=== PATIENT | female | born 1960 | race Caucasian/White ===

== ENCOUNTER 2018-01-06 03:52 | Emergency (ER) | payer BC ==
[2018-01-06] MEDS ORDERED: PROPARACAINE 0.5% OPHTH DROPS 15 ML EACHEYE STA (04:05)
[2018-01-06] MEDS ORDERED: ERYTHROMYCIN OPHTH OINT 1 GM TUBE LEFTEYE STA (04:27)
--- NOTE | 2018-01-06 04:32 | ED Physician Documentation ---
PD HPI OPHTHO - Stated complaint Stated Complaint: L EYE PX - Chief complaint Chief Complaint: Heent - History obtained from History obtained from: Patient - Treatment prior to arrival Treatment prior to arrival: 57-year-old female presents the emergency department with increasing left eye irritation. The patient's symptoms started yesterday when she noticed irritation to her left eye. The patient reports a glazing over I similar to when she had conjunctivitis. The patient's pain increased throughout the day and this morning she reports a sharp pain and generalized irritation. The patient reports blurry vision. No fever. No specific injury. Symptoms are described as moderate. The patient does wear contacts. No relieving factors Review of Systems Constitutional: denies: Fever Eyes: reports: Photophobia, Discharge, Irritation. 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 - Present Medications Home Medications: Ambulatory Orders Medication Instructions Recorded Confirmed Montelukast [Singulair] 1 tab PO DAILY 01/06/18 01/06/18 Ofloxacin 0.3% Ophth Drops 1 - 2 drops OPTH QID #1 btl 01/06/18 [Ocuflox 0.3% Ophth Drops] - Allergies Allergies/Adverse Reactions: Allergies Allergy/AdvReac Type Severity Reaction Status Date / Time Sulfa (Sulfonamide Allergy Hives Verified 01/06/18 04:06 Antibiotics) - Social History Does the pt smoke?: No Smoking Status: Never smoker Does the pt drink ETOH?: Yes Does the pt have substance abuse?: No - Immunizations Immunizations are current?: Yes - POLST Patient has POLST: No PD ED PE NORMAL - General General: Alert and oriented X 3 - HEENT HEENT: Atraumatic - Neuro Neuro: Alert and oriented X 3, Normal speech - Psych Psych: Normal affect PD ED PE EXPANDED - Eyes Eyes: PERRL, Normal accommodation, EOMI, Left eye, No eyelid FB (everted), Injected conj/sclera, Anterior chambers clear, Other (IOP: Right 17, Left 21). No: Eyelid injury, Eyelid swelling, Exudate, Conj/sclera FB, Subconj hemorrhage , Corneal FB, Corneal ulcer, Hyphema, Ant chamber cells/flare Results - Vitals Vitals: Vital Signs - 24 hr 01/06/18 03:55 Temperature 36.8 C Heart Rate 102 H Respiratory 18 Rate Blood Pressure 171/88 H O2 Saturation 97 Oxygen O2 Source Room air PD MEDICAL DECISION MAKING - ED course ED course: The patient's pain resolved after proparacaine drops. The patient had normal intraocular pressures. The patient's vision returned once her pain was under control, The patient was advised to not use her contacts and we placed on a course of antibiotic drops. Advised following up with ophthalmology for further workup and evaluation of her symptoms. - Sepsis Event Vital Signs: Vital Signs - 24 hr 01/06/18 03:55 Temperature 36.8 C Heart Rate 102 H Respiratory 18 Rate Blood Pressure 171/88 H O2 Saturation 97 Oxygen O2 Source Room air Departure - Departure Disposition: 01 Home, Self Care Clinical Impression: Conjunctivitis Qualifiers: Conjunctivitis type: acute Acute conjunctivitis type: unspecified Laterality: unspecified laterality Qualified Code(s): H10.30 - Unspecified acute conjunctivitis, unspecified eye Condition: Good Follow-Up: Los Harris MD [Provider Admit Priv/Credential] - Jez Marina MD [Provider Admit Priv/Credential] - Ambreen Chopra MD [Provider Admit Priv/Credential] - Prescriptions: Ofloxacin 0.3% Ophth Drops [Ocuflox 0.3% Ophth Drops] 1 - 2 drops OPT QID #1 btl Comments: Please follow-up with ophthalmology for further workup and evaluation of your eye pain. Stop wearing your currents contacts. Please return to the emergency department immediately for worsening symptoms or any concerns
[2018-01-06 04:55] VITALS: BP 168/87
== END 2018-01-06 04:55 | disposition home or self-care (01) ==
LOC: ED 03:52
DX: H10.9 Unspecified conjunctivitis (principal)
CPT/HCPCS: 99283; J3490

== ENCOUNTER 2020-04-30 14:36 | Outpatient (CLI) | payer BC | END 2020-04-30 14:37 | disposition critical access hospital (66) | LOC: EMS 14:36 | PROVIDERS: ATTEND Surgery | DX: R07.9 Chest pain, unspecified (principal) | CPT/HCPCS: A0425; A0427 ==

== ENCOUNTER 2020-04-30 15:08 | Emergency (ER) | payer BC ==
[2020-04-30] MEDS ORDERED: MAG HYDROX/AL HYDROX/SIMETH 30 ML UDC PO STA (15:25)
[2020-04-30] MEDS ORDERED: LIDOCAINE VISCOUS 2% 15 ML UDC MM STA (15:25)
--- NOTE | 2020-04-30 15:29 | ED Physician Documentation ---
PD HPI CHEST PAIN - Stated complaint Stated Complaint: CP - Chief complaint Chief Complaint: Cardiac - History obtained from History obtained from: Patient - History of Present Illness Timing - onset: How many weeks ago (1) Timing - onset during: Rest Timing - duration: Weeks (1) Timing - details: Constant Pain level max: 6 Pain level now: 5 Quality: Pressure, Tightness, Other (Cramping) Location: Substernal, Epigastric Radiation: No: Jaw, Neck, Back, Abdominal, Left upper extremity, Right upper extremity Improved by: Nothing Worsened by: Other (nothing) Associated symptoms: No: Shortness of air, Diaphoresis, Nausea, Vomiting, Feeling faint / dizzy, General Weakness, Palpitations, Cough Similar symptoms before: Has not had sx before Recently seen: Not recently seen - Additional information Additional information: 59-year-old female with epigastric abdominal pain and chest pain for the past week. She describes it is constant. Nothing makes it better or worse. Has not had similar symptoms in the past. No cardiac history. 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 - Present Medications Home Medications: Ambulatory Orders Medication Instructions Recorded Confirmed Montelukast [Singulair] 1 tab PO DAILY 01/06/18 04/30/20 - Allergies Allergies/Adverse Reactions: Allergies Allergy/AdvReac Type Severity Reaction Status Date / Time Sulfa (Sulfonamide Allergy Hives Verified 04/30/20 15:13 Antibiotics) - Living Situation Living Arrangement: reports: At home - Social History Does the pt smoke?: No Smoking Status: Never smoker Does the pt drink ETOH?: Yes Does the pt have substance abuse?: No - Immunizations Immunizations are current?: Yes - POLST Patient has POLST: No PD ED PE NORMAL - Vitals Vital signs reviewed: Yes - General General: Alert and oriented X 3, No acute distress, Well developed/nourished - HEENT HEENT: PERRL, Moist mucous membranes - Neck Neck: Supple, no meningeal sign - Cardiac Cardiac: RRR, No murmur, Strong equal pulses - Respiratory Respiratory: No respiratory distress, Clear bilaterally - Abdomen Abdomen: Normal bowel sounds, Soft, Non distended, Other (mild TTP epigastric. no peritoneal signs.) - Derm Derm: Warm and dry, No rash - Extremities Extremities: No edema, No calf tenderness / cord - Neuro Neuro: Alert and oriented X 3 - Psych Psych: Normal mood, Normal affect Results - Vitals Vitals: Vital Signs - 24 hr 04/30/20 04/30/20 15:13 16:55 Temperature 36.6 C Heart Rate 100 100 Respiratory 16 18 Rate Blood Pressure 189/89 H 138/90 H O2 Saturation 98 100 Oxygen O2 Source Room air - EKG (time done) 1510 Rate: Rate (enter#) (107) Rhythm: Sinus tachycardia [place]: Posterior hemiblock (LPFB) Intervals: Normal CO QRS: Normal Ischemia: Non specific changes - Labs Labs: Laboratory Tests 04/30/20 04/30/20 04/30/20 15:40 15:40 15:40 WBC 10.4 RBC 4.48 Hgb 13.5 Hct 41.0 MCV 91.5 MCH 30.1 MCHC 32.9 RDW 12.0 Plt Count 267 MPV 8.6 Neut # (Auto) Not Reportable Lymph # (Auto) Not Reportable [place] # (Auto) Not Reportable Eos # (Auto) Not Reportable Baso # (Auto) Not Reportable Absolute Nucleated RBC Not Reportable Total Counted 100 Band Neuts % (Manual) 4 Abnorm Lymph % (Manual) 0 Nucleated RBC % Not Reportable Neutrophils # (Manual) 6.6 Lymphocytes # (Manual) 1.7 Monocytes # (Manual) 0.3 Eosinophils # (Manual) 1.9 H Basophils # (Manual) 0.0 Differential Comment MANUAL DIFFERENTIAL Platelet Estimate NORMAL (130-450,000) Platelet Morphology NORMAL APPEARANCE RBC Morph Micro Appear NORMAL APPEARANCE Sodium 140 Potassium 3.7 Chloride 106 Carbon Dioxide 24 Anion Gap 10.0 BUN 8 Creatinine 0.6 Estimated GFR (MDRD) 102 Glucose 113 H Calcium 9.6 Total Bilirubin 0.6 AST 19 ALT 15 Alkaline Phosphatase 100 Troponin I High Sens 4.4 Total Protein 7.3 Albumin 4.1 Globulin 3.2 Albumin/Globulin Ratio 1.3 Lipase 40 - Rads (name of study) Chest x-ray Radiology: Prelim report reviewed, EMP read contemporaneously, See rad report (No acute abnormality) PD MEDICAL DECISION MAKING - ED course Complexity details: reviewed results, re-evaluated patient, considered differential (No ST elevation [place], no aortic dissection, no PE, no tension pneumothorax, no aortic aneurysm), d/w patient ED course: 59-year-old female presents to the emergency department with chest pain. Possible GERD? Feels better after GI cocktail. Negative troponin. No evidence of PE. No evidence of pneumothorax or aortic aneurysm or dissection. We will have her follow-up with her doctor for further care. Patient counseled regarding signs and symptoms for which I believe and urgent re-evaluation would be necessary. Patient with good understanding of and agreement to plan and is comfortable going home at this time This document was made in part using voice recognition software. While efforts are made to proofread this document, sound alike and grammatical errors may occur. Departure - Departure Disposition: 01 Home, Self Care Clinical Impression: Chest pain Qualifiers: Chest pain type: unspecified Qualified Code(s): R07.9 - Chest pain, unspecified Condition: Good Instructions: ED Chest Pain Atypical Unkn Cause Follow-Up: VENKATA CANTU MD [Primary Care Provider] - Within 1 week Comments: The cause of your symptoms is unclear today. Follow-up with your doctor for further care. Discharge Date/Time: 04/30/20 16:55
[2020-04-30 15:53] LABS: BASOPHILS % (AUTO) 0.3 %; EOSINOPHILS % (AUTO) 17.3 %; HGB - HEMOGLOBIN 13.5 g/dL (12.0-16.0); LYMPHOCYTES % (AUTO) 17.9 %; MEAN CORPUSCULAR HEMOGLOBIN 30.1 pg (27.0-31.0); MEAN CORPUSCULAR HGB CONC 32.9 g/dL (32.0-36.0); MEAN CORPUSCULAR VOLUME 91.5 fL (81.0-99.0); MEAN PLATELET VOLUME 8.6 fL (7.9-10.8); MONOCYTES % (AUTO) 6.8 %; NEUTROPHILS % (AUTO) 57.1 %; PLT - PLATELET COUNT 267 10^3/uL (130-450); RED BLOOD COUNT 4.48 10^6/uL (4.20-5.40); WHITE BLOOD COUNT 10.4 x10^3/uL (4.8-10.8)
[2020-04-30 15:55] LABS: ABNORMAL LYMPHS % (MANUAL) 0 %
[2020-04-30 16:06] LABS: ALBUMIN 4.1 g/dL (3.2-5.5); ALBUMIN/GLOBULIN RATIO 1.3 (1.0-2.2); BILIRUBIN,TOTAL 0.6 mg/dL (0.2-1.0); CALCIUM 9.6 mg/dL (8.5-10.3); CREATININE 0.6 mg/dL (0.4-1.0); TOTAL PROTEIN 7.3 g/dL (6.7-8.2)
--- NOTE | 2020-04-30 16:11 | XRAY Report ---
PROCEDURE: Chest 1 View X-Ray INDICATIONS: Chest Pain TECHNIQUE: One view of the chest was acquired. COMPARISON: None. FINDINGS: Surgical changes and devices: None. Lungs and pleura: No pleural effusions or pneumothorax. Lungs are clear. Mediastinum: Mediastinal contours appear normal. Heart size is normal. Bones and chest wall: No suspicious bony lesions. Overlying soft tissues appear unremarkable. IMPRESSION: No acute cardiopulmonary abnormality. Reviewed by: Sravan Griffin MD on 04/30/2020 4:10 PM [facility] Approved by: Sravan Griffin MD on 04/30/2020 4:10 PM [facility] Station ID: [id number]
[2020-04-30 16:17] LABS: BAND NEUTROPHILS % (MANUAL) 4 %; DIFFERENTIAL COMMENT MANUAL DIFFERENTIAL; EOSINOPHILS # (MANUAL) 1.9 10^3/uL (0-0.7); LYMPHOCYTES # (MANUAL) 1.7 10^3/uL (1.5-3.5); LYMPHOCYTES % (MANUAL) 16 %; MONOCYTES # (MANUAL) 0.3 10^3/uL (0.0-1.0); PLATELET ESTIMATE, MANUAL NORMAL (130-450,000) (NORMAL); PLATELET MORPHOLOGY NORMAL APPEARANCE (NORMAL); RBC MORPHOLOGY (MULTIPLE) NORMAL APPEARANCE (NORMAL)
[2020-04-30 16:57] VITALS: BP 138/90
== END 2020-04-30 16:55 | disposition home or self-care (01) ==
LOC: EDUNIT# → ED 15:08
DX: R07.89 Other chest pain (principal); I44.5 Left posterior fascicular block; R00.0 Tachycardia, unspecified; G80.9 Cerebral palsy, unspecified
CPT/HCPCS: 71045; 80053; 83690; 84484; 85025; 93005; 99284; A9270

== ENCOUNTER 2023-04-17 22:04 | Emergency (ER) | payer BC ==
[2023-04-17 22:34] LABS: BASOPHILS % (AUTO) 0.6 %; EOSINOPHILS # (AUTO) 0.2 10^3/uL (0.0-0.7); EOSINOPHILS % (AUTO) 2.5 %; HCT - HEMATOCRIT 35.3 % (37.0-47.0); HGB - HEMOGLOBIN 11.7 g/dL (12.0-16.0); LYMPHOCYTES % (AUTO) 46.4 %; MEAN CORPUSCULAR HEMOGLOBIN 30.2 pg (27.0-31.0); MEAN CORPUSCULAR HGB CONC 33.1 g/dL (32.0-36.0); MEAN CORPUSCULAR VOLUME 91.2 fL (81.0-99.0); MEAN PLATELET VOLUME 8.4 fL (7.9-10.8); MONOCYTES # (AUTO) 0.7 10^3/uL (0.0-1.0); MONOCYTES % (AUTO) 10.2 %; NEUTROPHILS # (AUTO) 2.6 10^3/uL (1.5-6.6); NEUTROPHILS % (AUTO) 40.1 %; PLT - PLATELET COUNT 271 10^3/uL (130-450); RED BLOOD COUNT 3.87 10^6/uL (4.20-5.40); RED CELL DISTRIBUTION WIDTH 12.4 % (12.0-15.0); WHITE BLOOD COUNT 6.4 x10^3/uL (4.8-10.8)
[2023-04-17 22:45] LABS: PT - PROTHROMBIN TIME 10.5 secs (9.9-12.6)
[2023-04-17 22:50] LABS: ALBUMIN 4.5 g/dL (3.2-5.5); ALBUMIN/GLOBULIN RATIO 1.9 (1.0-2.2); BILIRUBIN,TOTAL 0.3 mg/dL (0.2-1.0); CALCIUM 9.8 mg/dL (8.5-10.3); CREATININE 0.6 mg/dL (0.6-1.3); POTASSIUM 3.7 mmol/L (3.5-4.5); TOTAL PROTEIN 6.9 g/dL (6.4-8.9)
[2023-04-17 22:52] VITALS: O2SAT 98
--- NOTE | 2023-04-17 22:57 | ED Physician Documentation ---
PD HPI CHEST PAIN - Stated complaint Stated Complaint: CHEST PX/NAUSEA - Chief complaint Chief Complaint: Cardiac - History obtained from History obtained from: Patient - Additional information Additional information: 62-year-old female with history of cerebral palsy presents from home by private vehicle for 1 week of left-sided suprasternal intermittent chest pain. Pain is intermittent, does not radiate, patient cannot identify what makes the pain come or go. She states that she is pretty sure that it is musculoskeletal, but because of her age she decided to "be cautious" and present to the ED. Denies previous heart problems. Denies family hx of heart disease. Never smoker. Review of Systems Constitutional: denies: Fever, Chills Cardiac: reports: Chest pain / pressure. 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 - Present Medications Home Medications: Ambulatory Orders Medication Instructions Recorded Confirmed Montelukast [Singulair] 1 tab PO DAILY 01/06/18 04/17/23 - Allergies Allergies/Adverse Reactions: Allergies Allergy/AdvReac Type Severity Reaction Status Date / Time Sulfa (Sulfonamide Allergy Hives Verified 04/17/23 22:19 Antibiotics) - Social History Does the pt smoke?: No Smoking Status: Never smoker Does the pt drink ETOH?: Yes Does the pt have substance abuse?: No - Immunizations Immunizations are current?: Yes - POLST Patient has POLST: No PD ED PE NORMAL - Vitals Vital signs reviewed: Yes - General General: Alert and oriented X 3, No acute distress, Well developed/nourished - HEENT HEENT: Atraumatic - Neck Neck: Supple, no meningeal sign - Cardiac Cardiac: RRR, Strong equal pulses, Other (chest wall tenderness along L sternal border) - Respiratory Respiratory: No respiratory distress, Clear bilaterally - Abdomen Abdomen: Soft, Non tender, Non distended - Derm Derm: Normal color, Warm and dry, No rash - Extremities Extremities: No deformity - Neuro Neuro: Alert and oriented X 3, 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, No motor deficit, Normal speech - Psych Psych: Normal mood, Normal affect Results - Vitals Vitals: Vital Signs - 24 hr 04/17/23 04/17/23 04/17/23 22:07 22:19 23:35 Temperature 36.3 C L 36.5 C Heart Rate 93 82 80 Respiratory 18 18 16 Rate Blood Pressure 202/89 H 178/87 H 150/80 H O2 Saturation 100 98 98 Oxygen O2 Source Room air - Labs Labs: Laboratory Tests 04/17/23 04/17/23 04/17/23 22:29 22:29 22:29 WBC 6.4 RBC 3.87 L Hgb 11.7 L Hct 35.3 L MCV 91.2 MCH 30.2 MCHC 33.1 RDW 12.4 Plt Count 271 MPV 8.4 Neut # (Auto) 2.6 Lymph # (Auto) 3.0 [place] # (Auto) 0.7 Eos # (Auto) 0.2 Baso # (Auto) 0.0 Absolute Nucleated RBC 0.00 Nucleated RBC % 0.0 PT 10.5 INR 1.0 Sodium 139 Potassium 3.7 Chloride 105 Carbon Dioxide 26 Anion Gap 8.0 BUN 13 Creatinine 0.6 Estimated GFR (MDRD) 101 Glucose 87 Calcium 9.8 Total Bilirubin 0.3 AST 14 ALT 8 L Alkaline Phosphatase 49 Troponin I High Sens 2.3 Total Protein 6.9 Albumin 4.5 Globulin 2.4 Albumin/Globulin Ratio 1.9 PD Medical Decision Making - ED course Complexity details: reviewed old records, reviewed results, re-evaluated patient, considered differential, d/w patient ED course: Well appearing patient with 1 wk of symptoms. Initially hypertensive on arrival, however BP taken while patient activly moving her arm around while telling her history. Heart score 1 based on age/no known risk factors. Troponins negative x2, EKG NSR without concerning findings, and CXR shows no acute process. Patient reassured of normal findings. She states she will follow up wtih her PCP and will talk about referral to cardiology for general evaluation. ED return precautions discussed. Departure - Departure Disposition: 01 Home, Self Care Clinical Impression: Chest pain Qualifiers: Chest pain type: unspecified Qualified Code(s): R07.9 - Chest pain, unspecified Condition: Stable Instructions: ED Chest Pain Atypical Unkn Cause Forms: PCP List Discharge Date/Time: 04/17/23 23:35
[2023-04-17 23:14] LABS: TROPONIN I HIGH SENSITIVITY 2.3 ng/L (2.3-14.8)
--- NOTE | 2023-04-17 23:14 | XRAY Report ---
PROCEDURE: Chest 1 View X-Ray INDICATIONS: chest pain TECHNIQUE: One view of the chest was acquired. COMPARISON: None. FINDINGS: Surgical changes and devices: None. Lungs and pleura: No pleural effusions or pneumothorax. Lungs are clear. Mediastinum: Mediastinal contours appear normal. Heart size is normal. Bones and chest wall: No suspicious bony lesions. Overlying soft tissues appear unremarkable. IMPRESSION: No acute cardiopulmonary process. Reviewed by: Benito Ga MD on 04/17/2023 11:13 PM [facility] Approved by: Benito aG MD on 04/17/2023 11:13 PM [facility] Station ID: [id number]
[2023-04-17 23:37] VITALS: BP 150/80
== END 2023-04-17 23:35 | disposition home or self-care (01) ==
LOC: ED 22:04
DX: R07.9 Chest pain, unspecified (principal)
CPT/HCPCS: 36415; 80053; 84484; 85025; 85610; 93005; 99283; 99284